=== PATIENT | female | born 1945 | race Caucasian/White ===

== ENCOUNTER 2018-10-01 09:36 | Emergency (ER) | payer OTHER ==
[~2018-10-01] VITALS: Ht 162.6 cm; Wt 52.5 kg
[~2018-10-01 09:36] MED LIST: DIAZ2TAB PO; ENOX40SY4 SQ; ESTR1TAB6 PO; OXYC-302 PO; TRAM-47 PO
[2018-10-01 09:41] VITALS: BP 136/70
[2018-10-01] MEDS ORDERED: KETOROLAC 30 MG/1 ML IM ONE (10:00)
[2018-10-01] MEDS ORDERED: KETOROLAC 30 MG/1 ML ONE (10:01)
--- NOTE | 2018-10-01 10:09 | NUR ---
Toradol admin. Patient refusing sling. Patient states she has a high deductible and would like to use the sling she has at home in order to save money.
--- NOTE | 2018-10-01 10:20 | NUR ---
Patient/Caregiver given discharge instructions and they have confirmed that they understand the instructions. Patient ambulatory with steady gait.
== END 2018-10-01 10:21 | disposition home or self-care (01) ==
LOC: ED 10:10
DX: G89.11 Acute pain due to trauma (principal); M25.512 Pain in left shoulder; X58.XXXA Exposure to other specified factors, initial encounter; Y93.89 Activity, other specified; Y92.410 Unspecified street and highway as the place of occurrence of the external cause; Y99.8 Other external cause status
CPT/HCPCS: 96372; 99283; J1885